=== PATIENT | female | born 1970 | race Caucasian/White ===

== ENCOUNTER → 2018-09-01 | Outpatient (CLI) | payer BC | LOC: LAB 14:49 | PROVIDERS: ATTEND Physician Assistant Medical | DX: R10.13 Epigastric pain (principal) | CPT/HCPCS: 87338 ==

== ENCOUNTER → 2019-03-05 | Outpatient (CLI) | payer BC ==
--- NOTE | 2019-03-07 19:55 | RT HOLTER TEST ---
FACILITY: [facility] [place] PATIENT NAME: JOELLE VARGAS : [id number] MR: [id number]: [id number] EXAM DATE: ORDERING PHYSICIAN: EDWIN ELLIOTT TECHNOLOGIST: SHONNA Hook-up date: 2019-03-05 11:20:00 Duration: 24:00:00 Test Indications: PALPITATIONS Medications: [id number] QRS complexes 275 Ventricular ectopics which represent <1 % of total QRS comp. 5 Supraventricular ectopics which represent <1 % of total QRS comp. * Paced QRS complexes which represent % of total QRS comp. VENTRICULAR ECTOPY 275 Isolated 0 Bigeminal Cycles 0 Couplets 0 Runs 0 Beats in Runs * Beats LONGEST at * BPM at :: -- * Beats FASTEST at * BPM at :: -- SUPRAVENTRICULAR ECTOPY 3 Isolated 1 Couplets 0 Runs 0 Beats in Runs * Beats LONGEST at * BPM at :: -- * Beats FASTEST at * BPM at :: -- HEART RATES 58 MIN at 05:36:36 2019-03-06 90 AVG 157 MAX at 07:37:15 2019-03-06 LONGEST RR 1.280 secs at 01:26:21 2019-03-06 S-T LEVELS Channel 1 -12.800 mm MIN at 11:20:00 2019-03-05 -12.800 mm MAX at 11:20:00 2019-03-05 Channel 2 -12.800 mm MIN at 11:20:00 2019-03-05 -12.800 mm MAX at 11:20:00 2019-03-05 Channel 3 -12.800 mm MIN at 11:20:00 2019-03-05 -12.800 mm MAX at 11:20:00 2019-03-05 Sinus rhythm thfoughout study. Isolated run 3 PAC's Infrequent PVC occuring in isolation. Likely negative holter study. Confirmed by Ignacio Crowell ([id number]) on 03/07/2019 7:55:18 PM Referred By: Overread By: Ignacio Talbert
== END ==
LOC: RESP 07:13
PROVIDERS: ATTEND Physician Assistant
DX: R00.2 Palpitations (principal)
CPT/HCPCS: 93225; 93226